=== PATIENT | female | born 1975 | race Two or more races ===

== ENCOUNTER 2023-09-28 22:36 | Emergency (ER) | payer OTHER ==
[~2023-09-28] VITALS: Ht 167.6 cm; Wt 90.7 kg
[2023-09-28] MEDS ORDERED: HYDROCHLOROTH12.5 M2 (22:39)
[2023-09-28] MEDS ORDERED: LEVOTHYROXINE25 MCG (22:39)
[2023-09-28] MEDS ORDERED: KETOROLAC TROMETHAMINE 60 MG VIAL IM ONE (23:00)
[2023-09-28] MEDS ORDERED: FAMOtidine 10 MG/ML (4ML VIAL) IV ONE (23:00)
[2023-09-28] MEDS ORDERED: ONDANSETRON HCL 2 MG/ML VIAL IM ONE (23:00)
[2023-09-28 23:52] LABS: HEMATOCRIT 38.7 % (36.0-45.00); HEMOGLOBIN 13.5 g/dL (12.0-15.00); MEAN CELL VOLUME 91.7 fL (80.00-100.00); MEAN CORPUSCULAR HEMOGLOBIN 31.9 pg (27.00-32.0); MEAN CORPUSCULAR HGB CONC 34.8 g/dl (32.0-36.0); PLATELET COUNT 272 K/uL (150-450); RED BLOOD COUNT 4.22 M/uL (4.00-6.00); RED CELL DISTRIBUTION WIDTH 12.8 % (11.5-14.5)
[2023-09-29 00:14] LABS: ALBUMIN 3.5 gm/dL (3.4-5.0); BILIRUBIN TOTAL 0.25 mg/dL (0.3-1.2); CALCIUM 8.8 mg/dL (8.5-10.1); CREATININE SERUM 0.84 mg/dL (0.55-1.02); GFR 72.06; GLOBULINA 3.8 G/DL (2.4-3.5); POTASSIUM 3.47 mEq/L (3.5-5.1); TOTAL PROTEIN 7.3 gm/dL (6.4-8.2)
[2023-09-29] MEDS ORDERED: PEPCID40 MG PO (02:57)
[2023-09-29] MEDS ORDERED: ZOFRAN8 MG PO (02:57)
== END 2023-09-29 02:59 ==
LOC: ER 22:36
PROVIDERS: General Practice
DX: R10.13 Epigastric pain (principal); R11.0 Nausea; R10.9 Unspecified abdominal pain; I10 Essential (primary) hypertension
CPT/HCPCS: 36415; 71045; 74177; 93005; Q9965